=== PATIENT | female | born 2000 | race Hispanic/Latino ===

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

== ENCOUNTER 2021-03-08 19:51 | Emergency (ER) | payer OTHER ==
[~2021-03-08] VITALS: Ht 167.6 cm; Wt 74.7 kg
[~2021-03-08 19:51] MED LIST: MACR100C43 PO; PYRI1TAB5 PO
[2021-03-08] MEDS ORDERED: CEPHALEXIN 500 MG CAP PO ONE (21:40)
[2021-03-08] MEDS ORDERED: CEPH500C PO (21:41)
[2021-03-08 21:51] VITALS: BP 130/73
== END 2021-03-08 21:53 | disposition home or self-care (01) ==
LOC: M ED 19:51
DX: L03.116 Cellulitis of left lower limb (principal); S80.212A Abrasion, left knee, initial encounter; W19.XXXA Unspecified fall, initial encounter; Y92.9 Unspecified place or not applicable; Y93.9 Activity, unspecified; Y99.9 Unspecified external cause status

== ENCOUNTER 2021-04-15 11:39 | Emergency (ER) | payer OTHER ==
[~2021-04-15] VITALS: Ht 167.6 cm; Wt 78.0 kg
[~2021-04-15 11:39] MED LIST changes: +CEPH500C PO
[2021-04-15 17:44] LABS: BASO % 0.1 % (0.0-1.0); EOS # 0.1 10^3/uL (0.0-0.5); EOS % 0.8 % (0.0-3.0); HEMATOCRIT 43.2 % (36.0-47.0); HEMOGLOBIN 13.8 g/dl (12.0-15.5); LYMPH # 1.2 10^3/uL (1.5-5.0); LYMPH % 16.3 % (24.0-44.0); MEAN CORPUSCULAR HEMOGLOBIN 29.4 pg (27.0-33.0); MEAN CORPUSCULAR HGB CONC 31.9 g/dl (32.0-36.5); MEAN CORPUSCULAR VOLUME 92.1 fl (80.0-96.0); MONO # 0.7 10^3/uL (0.0-0.8); MONO % 10.1 % (2.0-8.0); NEUTROPHILS # 5.3 10^3/uL (1.5-8.5); NEUTROPHILS % 72.4 % (36.0-66.0); PLATELET COUNT, AUTOMATED 282 10^3/uL (150-450); RED BLOOD COUNT 4.69 10^6/uL (4.00-5.40); WHITE BLOOD COUNT 7.4 10^3/uL (4.0-10.0)
[2021-04-15 18:03] LABS: HCG, SERUM QUALITATIVE NEGATIVE (NEGATIVE)
[2021-04-15 18:42] LABS: GC DNA AMPLIFICATION NEGATIVE (NEGATIVE)
[2021-04-15 18:50] VITALS: BP 131/67
== END 2021-04-15 18:55 | disposition home or self-care (01) ==
LOC: M ED 11:39
DX: R19.7 Diarrhea, unspecified (principal); Z11.3 Encounter for screening for infections with a predominantly sexual mode of transmission; Z32.02 Encounter for pregnancy test, result negative; F17.290 Nicotine dependence, other tobacco product, uncomplicated

== ENCOUNTER 2021-05-11 15:12 | Emergency (ER) | payer OTHER ==
[~2021-05-11] VITALS: Ht 167.6 cm; Wt 77.0 kg
[2021-05-11] MEDS ORDERED: NITR1CAP11 PO (18:02)
[2021-05-11] MEDS ORDERED: PHEN-372 PO (18:02)
[2021-05-11 18:10] VITALS: BP 120/61
== END 2021-05-11 18:12 | disposition home or self-care (01) ==
LOC: M ED 15:12
DX: N39.0 Urinary tract infection, site not specified (principal); R30.0 Dysuria; R31.9 Hematuria, unspecified